=== PATIENT | male | born 1965 | race Two or more races ===

== ENCOUNTER 2024-11-06 11:36 | Inpatient (IN) | payer MEDICAID, SELFPAY ==
[2024-11-06 11:42] VITALS: BMI 25.0
--- NOTE | 2024-11-06 11:54 | EKG_ITS ---
[facility] Test Date: 2024-11-06 Pat Name: VALENTINO MIDDLETON Department: Room: 14A Gender: Male Termite Control Representative: ROMULO : 1965 Requested By: Jose Bhagat Order Number: [id number] Reading MD: Jose Bhagat Measurements Intervals [place] Rate: 80 P: 32 LA: 130 QRS: -12 QRSD: 98 T: 107 QT: 358 QTc: 415 Interpretive Statements SINUS RHYTHM INCOMPLETE RIGHT BUNDLE BRANCH BLOCK [90+ ms QRS DURATION, TERMINAL R IN V1/V2, 40+ ms S IN I/aVL/V4/V5/V6] ST DEVIATION AND MODERATE T-WAVE ABNORMALITY, CONSIDER ANTEROLATERAL ISCHEMIA [-0.1+ mV T WAVE IN V3-V6] No previous ECG available for comparison /store/S0/[id number]/ecg/[id number]
--- NOTE | 2024-11-06 11:54 | XR_ITS ---
Examination: AP chest single view Technique one AP portable upright chest single view Date and time: November 06, 2024 1316 hours INDICATIONS: Status post tracheostomy tube placement FINDINGS: Tracheostomy tube tip 7.6 cm from the johnny Mild prominence left ventricle No pneumonia or pulmonary edema Osseous structures intact IMPRESSION: Tracheostomy tube tip 7.6 cm from the johnny
[2024-11-06 12:00] VITALS: BP 107/68; RESP 74; TEMP 37.2
[2024-11-06 12:07] VITALS: PULSE 77; RESP 19; O2SAT 97
[2024-11-06 13:29] LABS: Basophils % (Auto) 0 % (0-2.5); Eosinophils # (Auto) 0.1 Thou/mm3 (0.0-0.5); Eosinophils % (Auto) 1 % (0-10); Hematocrit 41.6 % (41.0-53.0); Hemoglobin 14.2 g/dL (13.5-16.0); Immature Granulocytes % (Auto) 6 % (0-0); Immature Granulocytes Auto 0.62 Thou/mm3 (0.00-0.00); Lymphocytes # (Auto) 2.1 Thou/mm3 (1.0-4.8); Lymphocytes % (Auto) 18 % (10-50); Mean Corpuscular HGB Conc 34.1 g/dl (31.0-37.0); Mean Corpuscular Hemoglobin 29.6 pg (25.0-35.0); Mean Corpuscular Volume 87 fL (80-100); Monocytes # (Auto) 0.5 Thou/mm3 (0.0-0.8); Monocytes % (Auto) 4 % (0-12); Neutrophils % (Auto) 71 % (37-80); Nucleated Red Blood Cell % 0 /100 WBC (0); Platelet Count 165 Thou/mm3 (140-440); RDW Standard Deviation 48.4 fL (35.1-43.9); Red Blood Count 4.79 Miln/mm3 (4.50-5.90); White Blood Count 11.2 Thou/mm3 (3.8-10.6)
[2024-11-06 14:00] LABS: Base Excess 3 (-3-3); HCO3 27 mEq/L (20-26); Inspired Oxygen, FIO2 28 %; O2 Saturation 98 % (91-98); PCO2 38 mmHg (32.0-48.0); PO2 87 mmHg (83-108); pH, Arterial 7.46 (7.35-7.45)
[2024-11-06 14:02] LABS: Allen Test Performed/OK; Puncture Site Site Not Noted
--- NOTE | 2024-11-06 14:14 | PC.SS ---
Resident admitted to subacute care on blow by with trach in place and GT for medication and nutrition. Resident is FULL CODE with full treatment. Resident decision maker is his daughter and .
--- NOTE | 2024-11-06 16:42 | PC.NURSE ---
Resident admitted from [facility], accompanied by AMT, resident was stable V/S 107/68 BP, 74 P, 98.9 temp., 20 respiration, saturation rate 97% on blow by 6L 28%, resident has a diagnosis of Glioblastoma, hypertension,Brain mass and hypertension, resident remain to be fullMD lacie. made aware and reviewed medication, make order and carried out, meet the family and answered all there concerns.
[2024-11-06 17:20] VITALS: BP 110/71; RESP 72; TEMP 36.6; O2SAT 97
[2024-11-06 19:03] VITALS: PULSE 72; RESP 18; O2SAT 98
--- NOTE | 2024-11-06 20:25 | ESHP_ITS ---
Physical exam Physical Exam Vital signs: Temp Pulse Resp BP Pulse Ox O2 Flow Rate FiO2 97.5 F 84 18 115/76 98 6 28 11/07/24 05:58 11/07/24 05:58 11/07/24 05:58 11/07/24 05:58 11/07/24 05:58 11/07/24 04:21 11/07/24 04:21 Narrative: Non-responsive to verbal commands, VSS Constitutional Constitutional: no acute distress HEENT Exam Comments: NAD Neck Exam Comments: supple, no JVD Chest/Breast/Axilla Exam Comments: NAD Respiratory Exam Respiratory: Present chest non-tender and lungs clear Cardiovascular Exam Cardiovascular: Present RRR, S1 and S2 Abdominal Exam Abdominal: Present soft and normoactive bowel sounds Rectal Exam Comments: deferred Exam Comments: NAD Extremities Exam Comments: spastic, no edema, no spontaneous movement seen Back/Spine/Pelvis Exam Comments: NAD Neurological Exam Comments: PVS, no response to any stimuli, no cognitive function. Incontinence of bladder & bowel Rehabilitation potential Diagnosis (1) Glioblastoma multiforme of central nervous system: Status: Chronic (2) Persistent vegetative state: Status: Chronic (3) Chronic respiratory failure: Status: Chronic (4) Essential hypertension: Status: Chronic (5) G tube feedings: Status: Chronic (6) Tracheostomy in place: Status: Chronic (7) Pontine hemorrhage: Status: Chronic Assessment & Plan Assessment: Pt admitted for comfort care for a terminal non treatable brain tumor Glioblastoma with complications of Pontine hemorrhage and respiratory failur as well as a PVS with resp compromise needing supplemental O2 and a feeding G tube. Achievable objective is comfort which is being ensured Plan: Comfort measures along with all treatment reviewed and continued . Pt had refused aggressive treatment for his brain tumor as per the family members since the prognosis was very limited for longevity of life Prognosis Prognosis: v. poor HPI History of Present Illness HPI: Pt is a 59 yrs of age male being admitted to DPS at [facility] for terminal clerk care. Pt is in a terminal state with diagnosis of Brain tumor namely GLIOBLASTOMA OF THE BRAIN not amenable to treatment other than for comfort. Pt remains in a comatosed state/Encephalopathic. Associated comorbidities include Pontine hemorrhage; HTN; Ch. respiratory failure with a Trach and a feeding G tube in place
[2024-11-06] MEDS: CHLORHEXIDINE MOUTHWASH 0.12% UDC 15 ML PO (20:39)
[2024-11-07] VITALS (8 sets, daily range): BP systolic 107–115; BP diastolic 68–77; PULSE 76–91; RESP 18–21; TEMP 36.1–39.8; O2SAT 96–99
[2024-11-07] MEDS: ENOXAPARIN SODIUM 40 MG/0.4 ML SYRINGE SC (09:16)
[2024-11-07] MEDS: CHLORHEXIDINE MOUTHWASH 0.12% UDC 15 ML PO ×2 (09:16→21:47)
[2024-11-07] MEDS: PANTOPRAZOLE 40 MG GRANPKT.DR GT (09:17)
[2024-11-07] MEDS: SULFAMETHOXAZOLE/TRIMETHOPRIM 1 EACH TABLET GT (09:28)
[2024-11-07] MEDS: ACETAMINOPHEN 325 MG TABLET GT (12:30)
[2024-11-07 21:09] LABS: Collection Type, Urine Catheter; Squamous Epithelial Cell,Urine 0 /hpf (0-5)
[2024-11-07 21:26] LABS: Basophils # (Auto) 0.1 Thou/mm3 (0.0-0.2); Basophils % (Auto) 0 % (0-2.5); Eosinophils # (Auto) 0.1 Thou/mm3 (0.0-0.5); Eosinophils % (Auto) 1 % (0-10); Hematocrit 40.4 % (41.0-53.0); Hemoglobin 13.7 g/dL (13.5-16.0); Immature Granulocytes % (Auto) 4 % (0-0); Immature Granulocytes Auto 0.65 Thou/mm3 (0.00-0.00); Lymphocytes # (Auto) 2.2 Thou/mm3 (1.0-4.8); Lymphocytes % (Auto) 12 % (10-50); Mean Corpuscular HGB Conc 33.9 g/dl (31.0-37.0); Mean Corpuscular Hemoglobin 29.8 pg (25.0-35.0); Mean Corpuscular Volume 88 fL (80-100); Monocytes # (Auto) 0.8 Thou/mm3 (0.0-0.8); Monocytes % (Auto) 4 % (0-12); Neutrophils # (Auto) 14.4 Thou/mm3 (1.8-7.7); Neutrophils % (Auto) 79 % (37-80); Nucleated Red Blood Cell % 0 /100 WBC (0); Platelet Count 145 Thou/mm3 (140-440); RDW Standard Deviation 48.8 fL (35.1-43.9); White Blood Count 18.1 Thou/mm3 (3.8-10.6)
[2024-11-07 21:39] LABS: COVID-19 Antigen (In-House) Negative (Negative)
[2024-11-07 21:41] LABS: Bacteria,Urine 4+; Bilirubin,Urine Negative (Negative); Blood,Urine Negative (Negative); Clarity,Urine Turbid (Clear/Hazy); Color,Urine Yellow (Lt Yel-Yel); Glucose, Urine Negative (Negative); Ketones,Urine Negative (Negative); Leukocyte Esterase,Urine Positive (Negative); Nitrite,Urine Positive (Negative); PH,Urine 6.5 (5.0-7.0); Protein,Urine Trace (Neg - Trace); RBC,Urine 5 /hpf (0-3); Specific Gravity,Urine 1.029 (1.001-1.035); WBC,Urine 216 /hpf (0-5)
[2024-11-07 21:43] LABS: Procalcitonin 0.17 ng/ml (0.0-0.49)
[2024-11-07] MEDS: MAGNESIUM HYDROXIDE 30 ML ORAL SUSP ML GT (21:47)
[2024-11-07 21:53] LABS: Influenza A Ag Negative; Influenza B Ag Negative
--- NOTE | 2024-11-07 22:27 | PC.NURSE ---
Per day shift charge nurse, resident had a fever of 103.6F, tyl. administered and temp. came down to 100.3, rectal temp. was re-check at 2024 and noted to be 100.4F, made aware and fever protocol initiated. 2219-lab results are in, made aware of result, new order for Levaquin 500mg daily via Gtube x 7 days, re-eval. pending cultures, this nurse left a voicemail to resident to call back facility for update, resident in room resting, call light within reach, no s/s of distress noted, HOB elevated.
[2024-11-07] MEDS: levoFLOXacin 500 MG TABLET GT (23:19)
[2024-11-08] VITALS (9 sets, daily range): BP systolic 115–122; BP diastolic 68–81; PULSE 78–86; RESP 18–20; TEMP 36.8–38.9; O2SAT 97–100
[2024-11-08] MEDS: ACETAMINOPHEN 325 MG TABLET 650 MG GT ×2 (03:21→16:30)
[2024-11-08] MEDS: IBUPROFEN 100 MG/5 ML ORAL.SUSP 600 MG GT (06:20)
[2024-11-08] MEDS: ENOXAPARIN SODIUM 40 MG/0.4 ML SYRINGE SC (08:23)
[2024-11-08] MEDS: PANTOPRAZOLE 40 MG GRANPKT.DR GT (08:23)
[2024-11-08] MEDS: SULFAMETHOXAZOLE/TRIMETHOPRIM 1 EACH TABLET GT (08:23)
[2024-11-08] MEDS: CHLORHEXIDINE MOUTHWASH 0.12% UDC 15 ML PO ×2 (09:00→20:30)
--- NOTE | 2024-11-08 16:07 | PC.IP ---
Addendum entered by Marcia Ontiveros LVN 11/15/24 15:01: Resident had episodes of desaturation and RUE flaccid; to ED for further evaluation on 11/14/24. Bibasilar pneumonia with the Bactrim DS; received IV antibiotic administration while in ED. Original Note: Offered Pneumococcal 20 vaccine with RP positive response. Resident has had some episodes of fever and on Bactrim DS. Will speak with MD on Saturday 11/11 regarding moving forward after antibiotics dose complete. MD will wait at least one week after dose complete of any antibiotic administration for any resident.
--- NOTE | 2024-11-08 16:42 | PC.DIETICIAN ---
Dietitian note: requesting to add a water bag to hang for hydration. Discussed with Fina WOO 1.Will add auto water flush of 25ml/hr x 22hrs 2. Decrease manual water flush from 400ml/shift -->200ml/ shift Total fluids: TF 1509ml+ AF 550ml+ manual flush 200ml/shift min (400ml)=2459ml or 35ml/kg using 70kg Thank you
[2024-11-08] MEDS: levoFLOXacin 500 MG TABLET GT (20:30)
[2024-11-09] VITALS (7 sets, daily range): BP systolic 102–111; BP diastolic 71–79; PULSE 77–82; RESP 17–18; TEMP 36.4–38.4; O2SAT 97–99
[2024-11-09] MEDS: CHLORHEXIDINE MOUTHWASH 0.12% UDC 15 ML PO ×2 (08:15→21:30)
[2024-11-09] MEDS: PANTOPRAZOLE 40 MG GRANPKT.DR GT (08:16)
[2024-11-09] MEDS: SULFAMETHOXAZOLE/TRIMETHOPRIM 1 EACH TABLET GT (08:17)
[2024-11-09] MEDS: ENOXAPARIN SODIUM 40 MG/0.4 ML SYRINGE SC (09:15)
[2024-11-09] MEDS: guaiFENesin Liq 100 MG/5 ML LIQUID GT (14:50)
[2024-11-09] MEDS: ACETAMINOPHEN 325 MG TABLET 650 MG GT (20:38)
[2024-11-09] MEDS: levoFLOXacin 500 MG TABLET GT (21:30)
[2024-11-10] VITALS (7 sets, daily range): BP systolic 113–134; BP diastolic 66–86; PULSE 74–90; RESP 17–22; TEMP 36.3–36.9; O2SAT 99–100
--- NOTE | 2024-11-10 06:08 | PC.NURSE ---
approximately 0230 DATACAP DEVELOPER found resident's trach was out. notified RN line department supervisor and trach re-inserted.
--- NOTE | 2024-11-10 07:40 | PD.SAPROG ---
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 SUBJECTIVE Fever:: none Shortness of Breath:: none Pain:: none OBJECTIVE Most recent vital signs: Last Vital Signs Temp 97.4 F 11/10/24 06:30 Pulse 79 11/10/24 06:30 Resp 20 11/10/24 06:30 BP 117/75 11/10/24 06:30 Pulse Ox 100 11/10/24 06:30 O2 Del Method Blow-by 11/10/24 06:30 O2 Flow Rate 6 11/10/24 02:00 FiO2 28 11/10/24 02:00 Neurological:: PVS (No cognitive response, no spontaneous/purposeful movement) Speech:: none Answers questions:: no Respiratory:: lungs clear Cardiovascular: RRR Abdomen: soft and nontender Extremities:: deformities (no edema) Tracheostomy:: to blow by Feeding per:: G tube ASSESSMENT & PLAN Assessment: Pt admitted for comfort care for a terminal non treatable brain tumor Glioblastoma with complications of Pontine hemorrhage and respiratory failur as well as a PVS with resp compromise needing supplemental O2 and a feeding G tube. Achievable objective is comfort which is being ensured Plan: Comfort measures along with all treatment reviewed and continued . Pt had refused aggressive treatment for his brain tumor as per the family members since the prognosis was very limited for longevity of life
[2024-11-10] MEDS: CHLORHEXIDINE MOUTHWASH 0.12% UDC 15 ML PO ×2 (09:16→21:22)
[2024-11-10] MEDS: ENOXAPARIN SODIUM 40 MG/0.4 ML SYRINGE SC (09:16)
[2024-11-10] MEDS: SULFAMETHOXAZOLE/TRIMETHOPRIM 1 EACH TABLET GT (09:18)
[2024-11-10] MEDS: PANTOPRAZOLE 40 MG GRANPKT.DR GT (09:18)
--- NOTE | 2024-11-10 11:19 | PC.NURSE ---
Received report from NOC RN Aurelia regarding resident's RT swollen testicle. Montessori Toddler Teacher assessed and noted same issue. Notified MD. Ordered US to be done KOLE. Notified Family. Also Notified resident's of the use of RT hand mitten aw per Doctor order due to resident pulling at life sustaining tubes. agreed to sign consent.
--- NOTE | 2024-11-10 13:28 | XR_ITS ---
Examination: Testicular sonography complete Technique: Grayscale sonographic images testes, assessment arterial inflow venous outflow Doppler spectral analysis carful analysis Date and time: November 10, 2024 1450 hrs. Indications: Testicular swelling noted beginning 2 days ago, patient is comatose Findings: Right testis 4.0 cm epididymis 2.7 cm Complex right epididymal cyst 17 x 14 x 15 mm Arterial flow testicle. No testicular mass Scrotal wall 12 mm Left testis 4.0 cm Epididymis 4.8 cm Arterial flow testicle. No testicular mass Mild hydrocele Impression: No testicular torsion or testicular mass Right epididymal cyst 17 x 14 x 15 mm Left epididymitis Moderate right hydrocele
[2024-11-10] MEDS: levoFLOXacin 500 MG TABLET GT (21:21)
[2024-11-10] MEDS: ACETAMINOPHEN 325 MG TABLET GT (21:22)
[2024-11-11] VITALS (7 sets, daily range): BP systolic 107–122; BP diastolic 64–82; PULSE 75–88; RESP 17–21; TEMP 36.6–37; O2SAT 96–100
[2024-11-11] MEDS: ENOXAPARIN SODIUM 40 MG/0.4 ML SYRINGE SC (09:04)
[2024-11-11] MEDS: CHLORHEXIDINE MOUTHWASH 0.12% UDC 15 ML PO ×2 (09:06→21:43)
[2024-11-11] MEDS: SULFAMETHOXAZOLE/TRIMETHOPRIM 1 EACH TABLET GT (09:08)
[2024-11-11 12:48] LABS: Collection Type, Urine Catheter
[2024-11-11 14:09] LABS: Bilirubin,Urine Negative (Negative); Blood,Urine Negative (Negative); Clarity,Urine Clear (Clear/Hazy); Color,Urine Yellow (Lt Yel-Yel); Culture Indicated,Urine Not Indicated; Glucose, Urine Negative (Negative); Ketones,Urine Negative (Negative); Leukocyte Esterase,Urine Positive (Negative); Nitrite,Urine Negative (Negative); PH,Urine 7.5 (5.0-7.0); Protein,Urine Negative (Neg - Trace); RBC,Urine 7 /hpf (0-3); Specific Gravity,Urine 1.016 (1.001-1.035); Squamous Epithelial Cell,Urine < 1 /hpf (0-5); WBC,Urine 10 /hpf (0-5)
--- NOTE | 2024-11-11 16:03 | PC.SS ---
RP informed of advanced directive offered in house, resident is unable to participate due to cognitive impairment and absence of speech. Family made aware of conservatorship options through court system. Family does not feel this to be necessary for now.
[2024-11-11] MEDS: levoFLOXacin 500 MG TABLET GT (21:43)
[2024-11-12] VITALS (8 sets, daily range): BP systolic 110–119; BP diastolic 67–75; PULSE 77–97; RESP 18–20; TEMP 36–38.8; O2SAT 96–99
[2024-11-12] MEDS: CHLORHEXIDINE MOUTHWASH 0.12% UDC 15 ML PO ×2 (09:07→20:26)
[2024-11-12] MEDS: PANTOPRAZOLE 40 MG GRANPKT.DR GT (09:08)
[2024-11-12] MEDS: ENOXAPARIN SODIUM 40 MG/0.4 ML SYRINGE SC (09:08)
[2024-11-12] MEDS: SULFAMETHOXAZOLE/TRIMETHOPRIM 1 EACH TABLET GT (09:09)
--- NOTE | 2024-11-12 10:44 | PC.SS ---
Resident comes in to see resident daily, she is nervous and seems very suspicious of staff and care. She has asked for resident to be dressed daily, she is nervous about leaving clothing in facility, this SSD assured her all clothing will be labeled and added to inventory sheet. Family will do laundry.
[2024-11-12] MEDS: levoFLOXacin 500 MG TABLET GT (21:26)
[2024-11-12] MEDS: ACETAMINOPHEN 325 MG TABLET 650 MG GT (21:27)
[2024-11-13] VITALS: BP 101/70; PULSE 71; RESP 20; TEMP 38.8
[2024-11-13 06:00] VITALS: BP 131/85; PULSE 83; RESP 18; TEMP 36.8; O2SAT 99
[2024-11-13 06:58] VITALS: PULSE 84; RESP 18; O2SAT 98
[2024-11-13] MEDS: ENOXAPARIN SODIUM 40 MG/0.4 ML SYRINGE SC (08:11)
[2024-11-13] MEDS: CHLORHEXIDINE MOUTHWASH 0.12% UDC 15 ML PO ×2 (08:11→20:00)
[2024-11-13] MEDS: SULFAMETHOXAZOLE/TRIMETHOPRIM 1 EACH TABLET GT (08:12)
[2024-11-13] MEDS: PANTOPRAZOLE 40 MG GRANPKT.DR GT (08:12)
[2024-11-13 11:18] VITALS: BP 107/64; PULSE 89; TEMP 36.7
[2024-11-13 16:52] VITALS: TEMP 38.1
[2024-11-13] MEDS: ACETAMINOPHEN 325 MG TABLET 650 MG GT (16:52)
[2024-11-13 17:29] VITALS: BP 151/87; PULSE 79; RESP 19; TEMP 36.9; O2SAT 98
[2024-11-13] MEDS: levoFLOXacin 500 MG TABLET GT (20:00)
[2024-11-14] VITALS: BP 155/82; PULSE 90; RESP 20; TEMP 36.9
[2024-11-14 01:45] VITALS: PULSE 84; RESP 18; O2SAT 89
[2024-11-14 06:00] VITALS: BP 147/80; PULSE 72; RESP 20; TEMP 36.9; O2SAT 100
[2024-11-14 06:58] VITALS: PULSE 81; RESP 18; O2SAT 98
[2024-11-14] MEDS: CHLORHEXIDINE MOUTHWASH 0.12% UDC 15 ML PO ×2 (08:35→22:50)
[2024-11-14] MEDS: PANTOPRAZOLE 40 MG GRANPKT.DR GT (08:36)
[2024-11-14] MEDS: SULFAMETHOXAZOLE/TRIMETHOPRIM 1 EACH TABLET GT (08:38)
[2024-11-14] MEDS: guaiFENesin Liq 100 MG/5 ML LIQUID GT (08:45)
[2024-11-14 11:55] VITALS: BP 137/79; PULSE 69; RESP 20; TEMP 36.3
--- NOTE | 2024-11-14 12:51 | PC.NURSE ---
Resident's non-responsive and right hand noted to be flaccid. Noted with high residuals . O2 saturation dropped to 87%- 89% on FIO2 at 40%. No s/s of respiratory distress. Suctioned as needed. HOB elevated . Slowly increased FIO2 but can't maintain O2 saturation of >90%. On FIO2 at 100% with O2 saturation of 95% -96%. V/S as follows: 137/79, 69, 20, 99.4 rectally. Order received to transfer resident to ER for further evaluation. Called ER and gave report. Resident's was notified at 12:28. Resident was sent out to ER at 12:46 via [facility].
[2024-11-14] MEDS: ENOXAPARIN SODIUM 40 MG/0.4 ML SYRINGE SC (14:36)
--- NOTE | 2024-11-14 16:15 | PC.NURSE ---
Patient was seen having low oxygen saturation ranging from low 90s with fatigue. Patient had gastric residuals of >200mls. RN on duty is made aware and MD aware. At 1235, Patient was sent out to ER due to change of LOC.
--- NOTE | 2024-11-14 16:21 | PD.SAPROG ---
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 SUBJECTIVE Fever:: none Shortness of Breath:: none Pain:: none OBJECTIVE Most recent vital signs: Last Vital Signs Temp 97.4 F 11/14/24 11:55 Pulse 69 11/14/24 11:55 Resp 20 11/14/24 11:55 BP 137/79 H 11/14/24 11:55 Pulse Ox 98 11/14/24 06:58 O2 Del Method Mechanical Ventilation 11/14/24 06:00 O2 Flow Rate 8 11/14/24 06:58 FiO2 30 11/14/24 06:58 Neurological:: PVS (No cognitive response, no spontaneous/purposeful movement) Speech:: none Answers questions:: no Respiratory:: lungs clear Cardiovascular: RRR Abdomen: soft and nontender Extremities:: deformities (no edema) Tracheostomy:: to blow by Feeding per:: G tube ASSESSMENT & PLAN Assessment: Pt admitted for comfort care for a terminal non treatable brain tumor Glioblastoma with complications of Pontine hemorrhage and respiratory failur as well as a PVS with resp compromise needing supplemental O2 and a feeding G tube. Achievable objective is comfort which is being ensured Plan: Comfort measures along with all treatment reviewed and continued . Pt had refused aggressive treatment for his brain tumor as per the family members since the prognosis was very limited for longevity of life. Noted to have further neurological worsening in not being able to move tne leg at all which worsening though expected in progressive brain tumor, but since pt is still a full code as per family , he was transferred to ER.
--- NOTE | 2024-11-14 23:00 | PC.NURSE ---
[facility] by AMNA Sylvester and RT Vishal. Resident unresponsive, flaccid, no distress noted. No response to verbal or touch. RT placed resident on 50% FIo2 Blow by, maintained saturation at 93% at this time. Resident situated, made comfortable. BP 96/58, HR 81, RR 19, Temp 97.5 Resume care.
--- NOTE | 2024-11-14 23:06 | PC.NURSE ---
Daughter of resident had called [phone], stating of [facility]. Waiting for arrival of resident's . Son is at bedside at this time.
[2024-11-15] VITALS (10 sets, daily range): BP systolic 95–136; BP diastolic 63–80; PULSE 68–85; RESP 7–20; TEMP 36.1–38.6; O2SAT 94–99
--- NOTE | 2024-11-15 01:36 | PC.RT ---
pt was transfered to [facility] without complications at 21:25 fio2 100% flow 9, once at bedside fio2 titrated to 50% sats maintaining 92-94% no distress noted nurse morgan was made aware.
--- NOTE | 2024-11-15 04:46 | PC.NURSE ---
Late Entry. Spoke with Dr. Bhagat @ 2390 regarding feeding due to high residual when sent to ER. Ordered to start Jevity 1.2 @ 10ml/hr increase by 10ml/hr every 8 hours to reach goal rate of 85ml/hr.
[2024-11-15] MEDS: CHLORHEXIDINE MOUTHWASH 0.12% UDC 15 ML PO ×2 (08:43→20:45)
[2024-11-15] MEDS: ENOXAPARIN SODIUM 40 MG/0.4 ML SYRINGE SC (08:43)
[2024-11-15] MEDS: PANTOPRAZOLE 40 MG GRANPKT.DR GT (08:43)
[2024-11-15] MEDS: SULFAMETHOXAZOLE/TRIMETHOPRIM 1 EACH TABLET GT (08:43)
[2024-11-15] MEDS: ACETAMINOPHEN 325 MG TABLET GT (08:54)
--- NOTE | 2024-11-15 12:08 | PC.NURSE ---
KATELYNN Bravo reported Resident latest vital signs at 1130 as follow 97.4, HR 71, B/P 130/74, RR 8 BPM. Assessed resident his O2 saturations at 93% . RT also assessed resident. No discomfort noted, appears comfortable, without any distress. Notified MD regarding Respiratory rate. order to continue to monitor. Noted high residual this am held Tube feeding x2 hours rechecked again residuals 150cc . Re-start tube feeding at 20cc/hr. Will continue to monitor.
--- NOTE | 2024-11-15 12:47 | PC.NURSE ---
Respiratory rate increased to 24 BPM after suctioning. resident responsive to feet rubbing.all other VS WNL.
--- NOTE | 2024-11-15 14:05 | PC.NURSE ---
At 1340 entered resident room and introduced myself to 3 family members at bedside; four adults in room in total. Son queried, How do you see my father? I explained that I would not present any information that a physician would be able to inform them of and I spoke of the resident's history in the acute care hospitals and his treatment at those hospitals, before his arrival here. I explained that I knew it was a difficult situation for them and that they should meet with Dr. Bhagat as soon as it can be arranged to further discuss prognostic outlook and possible code status. Per the ER MD notes, family was informed of the serious nature of the resident's illness. We spoke of his days when he was an active adult and working and he didn't ever go to the doctor, but started having bad headaches about 15 years ago. They just gave him really strong pills and didn't do anything else. This per the son. I emphasized the importance of speaking with Dr. Bhagat and letting him also explain the resident's current condition. The family is asking for scan results, because he was supposed to have another. I did check the RAD results and consider brain MRI MRA follow-up pre and post contrast. MD may be discussing during rounds for this resident. I will inform digging machine operator of my conversation.
--- NOTE | 2024-11-15 14:22 | PC.IP ---
Addendum entered by Marcia Ontiveros LVN 11/15/24 14:58: Note that sputum culture results of 11/10/24, Klebsiella pneumoniae 4+; confirmed sensitivity to Trimethoprim/Sulfamethoxazole as prescribed at this time for bibasilar pneumonia. Last documented temperature 99.5. Family visiting at bedside. Original Note: Resident is prescribed Bactrim DS pgt twice daily for positive bibasilar PNA, significant left base per CXR on 11/14/24 during ED visit. Continues on blow-by after visit to ED.
--- NOTE | 2024-11-15 15:10 | PC.SS ---
Resident remains on blow by with trach in place and GT for medication and nutrition. Resident is unable to make needs known, his Teresa is his decision maker and his son is next of kin Adam per RP. Family is at bedside daily. resident will remain in current care as he has no changes in care or condition, he will continue to have all subacute care needs met by staff. This SSD will continue to make contact with resident and will monitor for changes.
--- NOTE | 2024-11-15 19:19 | PC.OT ---
Late entry for events of this day shift. Resident had been monitored for high residuals greater than 250. Held TF x2 hours this am rechecked residuals at 11 and re-started TF at a rate of 20ml. 1130 MINERAL ENGINEER reported decreased RR to 7-8. notified MD no further orders given only to monitor closely as it was noted before all other vital signs remained stable. Resident resident continue with low RR . non responsive to verbal stimuli. At 1800 residual were checked 335ml noted. Call MD one more time. MD arrived to unit to evaluate resident. NO further order to transfer resident were given. MD spoke with resident's family (, son, and resident's sister) MD explained to family regarding poor prognosis for resident (Has Brain tumor) doctor suggested to made comfort measures only. at this time family will decide what comfort care they want other than keep him as full code. stated She wants for her to be comfortable without suffering. At this point pt remains Full code until further orders. Family verbalized understanding. Hand off report given to Isidra WOO night nurse.
--- NOTE | 2024-11-15 21:18 | PC.NURSE ---
Per day shift charge nurse, resident has been having low respiratory rate under 10 per minutes, per day shift charge nurse, came to see resident and explain to family and is current prognosis, at that time want resident to be a full code.
--- NOTE | 2024-11-15 22:02 | PC.NURSE ---
made aware of resident current vitals 161/84,90,5, 02sat 97%, this nurse called family to notify of decrease respirations, is undecisive to change code status but does not want him to be send out to ER, new order to place resident on vent, RT made aware, family made aware of resident placed on a vent, per family they will decide code status tomorrow and unable to decide tonight, this nurse informed him that he still continues to be a full code at this time.
[2024-11-16] VITALS (11 sets, daily range): BP systolic 135–163; BP diastolic 75–91; PULSE 70–138; RESP 14–21; TEMP 36.7–40; O2SAT 96–99
[2024-11-16] MEDS: CHLORHEXIDINE MOUTHWASH 0.12% UDC 15 ML PO ×2 (09:16→20:15)
[2024-11-16] MEDS: PANTOPRAZOLE 40 MG GRANPKT.DR GT (09:17)
[2024-11-16] MEDS: ENOXAPARIN SODIUM 40 MG/0.4 ML SYRINGE SC (09:17)
[2024-11-16] MEDS: SULFAMETHOXAZOLE/TRIMETHOPRIM 1 EACH TABLET GT (09:17)
[2024-11-16] MEDS: ACETAMINOPHEN 325 MG TABLET GT (12:15)
[2024-11-16] MEDS: ACETAMINOPHEN 325 MG TABLET 650 MG GT (17:10)
--- NOTE | 2024-11-16 19:45 | PC.NURSE ---
made aware of resident current condition, resident has a fever of 104.0F rectally, new order for IBU 400mg [id number] prn given, RP made aware.
[2024-11-16] MEDS: IBUPROFEN 100 MG/5 ML ORAL.SUSP 400 MG GT (20:10)
[2024-11-17] VITALS (16 sets, daily range): BP systolic 107–169; BP diastolic 72–125; PULSE 108–137; RESP 14–21; TEMP 36.3–39.4; O2SAT 95–98
[2024-11-17] MEDS: ENOXAPARIN SODIUM 40 MG/0.4 ML SYRINGE SC (08:27)
[2024-11-17] MEDS: CHLORHEXIDINE MOUTHWASH 0.12% UDC 15 ML PO ×2 (08:27→20:31)
[2024-11-17] MEDS: PANTOPRAZOLE 40 MG GRANPKT.DR GT (08:28)
[2024-11-17] MEDS: ACETAMINOPHEN 325 MG TABLET 650 MG GT ×2 (08:28→14:18)
[2024-11-17] MEDS: SULFAMETHOXAZOLE/TRIMETHOPRIM 1 EACH TABLET GT (08:28)
[2024-11-17] MEDS: IBUPROFEN 100 MG/5 ML ORAL.SUSP 400 MG GT ×2 (09:33→17:41)
--- NOTE | 2024-11-17 15:18 | PC.NURSE ---
On 11/16/2024 about 1600 Mr. Trent's Teresa Adkins signed a POLST with DNR and to call family if health status changes.
--- NOTE | 2024-11-17 17:53 | PC.NURSE ---
0818-Rectal temp 102.4, Tylenol 650mg given via g-tube per order and cooling measures implemented. Rectal temp rechecked at 0930, 102.3. Ibuprofen given at 0933 per order and rechecked an hour later , 102.0. Cooling measures continued. Resident resting in bed with eyes closed, no s/s of distress or pain noted. RN notified.
--- NOTE | 2024-11-17 17:55 | PC.NURSE ---
1139- Rectal temp checked 101.7. Residuals checked and obtained 150ml. Tube feeding is currently at 50ml/hr and was not increased to 60ml/hr due to residuals. RN notified. Will continue with current plan of care.
--- NOTE | 2024-11-17 17:57 | PC.NURSE ---
1418- Rectal temperature 101.0. Tylenol given via g-tube per order.
[2024-11-17] MEDS: ACETAMINOPHEN 325 MG TABLET GT (20:33)
[2024-11-17] MEDS: MAGNESIUM HYDROXIDE 30 ML ORAL SUSP ML GT (21:03)
--- NOTE | 2024-11-17 23:17 | PC.NURSE ---
11/17/24@23:10: Dr. Bhagat called after this scientific writer checked patients residuals. Residuals found to be over 375ml. Pt continues unresponsive, vitals: Temp per rectal 96.4, RR 14, HR 108 and bp 61/48. Pt is cool to touch but skin still appears normal in color for pt. Residuals has continued to be over 300 since start of pm shift. Per Dr. Bhagat, feeding is to be turned off for the remainder of the shift. Pt to be kept comfortable.
--- NOTE | 2024-11-17 23:26 | PC.NURSE ---
11/17/24@23:10: Dr. Bhagat called after this engineering technical writer checked patients residuals. Residuals found to be over 375ml. Pt continues unresponsive, vitals: Temp per rectal 96.4, RR 14, HR 108 and bp 61/48. Pt is cool to touch but skin still appears normal in color for pt. Residuals has continued to be over 300 since start of pm shift. Per Dr. Bhagat, feeding is to be turned off for the remainder of the shift. Pt to be kept comfortable.
[2024-11-18] VITALS (9 sets, daily range): BP systolic 42–61; BP diastolic 30–48; PULSE 55–95; RESP 14–15; TEMP 35.5–36.1; O2SAT 64–97
[2024-11-18] MEDS: CHLORHEXIDINE MOUTHWASH 0.12% UDC 15 ML PO (08:34)
[2024-11-18] MEDS: SULFAMETHOXAZOLE/TRIMETHOPRIM 1 EACH TABLET GT (08:34)
[2024-11-18] MEDS: ENOXAPARIN SODIUM 40 MG/0.4 ML SYRINGE SC (08:34)
[2024-11-18] MEDS: PANTOPRAZOLE 40 MG GRANPKT.DR GT (08:34)
--- NOTE | 2024-11-18 10:55 | PC.SS ---
Resident seen by salesperson used cars for routine podiatry care. Resident tolerated treatment well with no new orders or recommendations, Resident will continue current care.
--- NOTE | 2024-11-18 12:03 | PC.NURSE ---
nurse after school program assistant Noelle reporting resident's blood pressure decreased to 43/ 33 with mechanical B/P machine, HR 85, RR 14 with mechanical ventilator. Manual b/p done manually by Heavenly WOO noted 60/30. HR 61. Notified MD stat and family. Called Teresa resident's and informed of resident's change in condition. So far resident remains on comfort measures. Does not appear in distress. Will continue to monitor.
--- NOTE | 2024-11-18 14:06 | PC.NURSE ---
Late entry for 1306. Dr. Bhagat arrived to unit to check on resident. MD assessed for vital signs unable to get vital signs, and or heart rate able to palpated HR beat 1 every 10 seconds. Mechanical ventilator still assisting his respirations. ordered changes on vent setting and let resident take spontaneous breaths. Resident noted with agonal breathing. Doctor spoke to multiple family members of possible outcome ( resident will soon may pass away. Family verbalized understanding. at 1405 resident HR was checked via doppler and fainted HR was still noted. Family remained at bed side. resident appears comfortable without visible distress. Will continue to monitor closely, resident remains trach to mechanical ventilator on spontaneous breathing.
--- NOTE | 2024-11-18 15:22 | PC.NURSE ---
RE-assessed pulse via Doppler, HR beat still sensed. trach to mechanical ventilator assisting respiratory rate. Resident's remains at bedside. Will rechecked resident again in 1 hour.
--- NOTE | 2024-11-18 18:09 | PC.NURSE ---
Assessed resident at this time. vital signs continue to declining MD notified. Family remains at pt's bedside. Will give hand off report to NOC nurse.
--- NOTE | 2024-11-18 19:16 | PC.NURSE ---
Held tube feeding At 1500 due to high residuals >200 as per MD order.
--- NOTE | 2024-11-18 21:10 | PC.NURSE ---
Doppler used to assess femoral pulse, reading at 84/min. and son Adam at bedside. RT Trung also present at bedside.
[2024-11-19] VITALS (8 sets, daily range): BP systolic 53–102; BP diastolic 41–70; PULSE 87–97; RESP 15; TEMP 35.6–36.1; O2SAT 88–93
--- NOTE | 2024-11-19 01:30 | PC.NURSE ---
DIFFICULT TO AUSCULTATE HEART BEAT WITH STETHOSCOPE, WEAK PULSE TO RIGHT RADIAL. HOUSE SUP PROVIDED TELEPHONE INTERVIEWER TO SPOT CHECK. MONITOR READ 86 HR. SON LYNNE AT BEDSIDE. RESIDE UNRESPONSIVE, FLACCID.
--- NOTE | 2024-11-19 06:51 | PC.NURSE ---
reported by BUCKLE GLUER resident didn't have an output at this time. bladder scan initiated found 418 ml. asked permission from Son who's at the bedside at this time to perform in and out cath which son agreed. 275 ml or Urine collected from in and out cath.
[2024-11-19] MEDS: CHLORHEXIDINE MOUTHWASH 0.12% UDC 15 ML PO (09:24)
[2024-11-19] MEDS: ENOXAPARIN SODIUM 40 MG/0.4 ML SYRINGE SC (09:24)
[2024-11-19] MEDS: SULFAMETHOXAZOLE/TRIMETHOPRIM 1 EACH TABLET GT (09:26)
--- NOTE | 2024-11-19 16:21 | PC.NURSE ---
Resident doesnt void for 8hrs after in and out MD. [place] and order to put shaffer catheter for comfort, order noted and carried out.
--- NOTE | 2024-11-19 17:10 | PC.RT ---
Per Dr Bhagat keep patient on vent mode: spont PS until further notice.
--- NOTE | 2024-11-19 21:45 | PC.NURSE ---
feeding hold due to 360 ml of residual.
[2024-11-20] VITALS (9 sets, daily range): BP systolic 81–108; BP diastolic 54–75; PULSE 84–97; RESP 15–17; TEMP 35.7–36.8; O2SAT 88–96
[2024-11-20] MEDS: CHLORHEXIDINE MOUTHWASH 0.12% UDC 15 ML PO (09:29)
[2024-11-20] MEDS: SULFAMETHOXAZOLE/TRIMETHOPRIM 1 EACH TABLET GT (09:30)
[2024-11-20] MEDS: PANTOPRAZOLE 40 MG GRANPKT.DR GT (09:30)
[2024-11-20] MEDS: ENOXAPARIN SODIUM 40 MG/0.4 ML SYRINGE SC (09:30)
--- NOTE | 2024-11-20 18:17 | PC.NURSE ---
Family at bedside and decided to discontinue the ventilator and keep the resident on comfort measure, . made aware ordered per family request discontinue mechanical ventilator and keep patient on comfort measure, order noted and carried out, family made aware about the order and they will notify staff whenever they are ready.
--- NOTE | 2024-11-21 00:38 | PC.NURSE ---
Received in report that resident's family wanted resident to be taken off ventilator and trach removed (DNR-comfort measures only). At approximately 1900 resident's trach and ventilator removed by RT per family's request and doctor's order. Multiple family members in room, per director resident was moved to activities room for family to all be in the room. Before moving resident to activity room vitals were obtained BP: 143/86, HR 106, O2 sat: 36%. At approximately 1940 attempted to obtain O2 saturation and vitals signs, unable to obtain vitals at this time, no chest rising, unable to palpate pulse on multiple points and no apical pulse heard. Called [facility] Raciel Alaniz to pronounce, Laura Fitzpatrick RN from Med Surg here to pronounce resident at 2021. Notified Dr Bhagat, [facility] and Home: Peers Erik. Family was at bedside notified of Home estimated pickup at 2200. Home here at 2150 to pickup resident's remains, all belongings given to family, all questions answered.
--- NOTE | 2025-01-02 07:39 | ESDS_ITS ---
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 HOSPITAL COURSE AND RELEVANT DATA: The patient is a 59-year-old male with the above-stated terminal diagnosis of glioblastoma multiforme of the central nervous system with mass effect, end stage, admitted to the [facility] for comfort measures. The objective was achieved until on 11/20/2024. The patient deteriorating as expected progressively, but without any major discomfort, and was pronounced accordingly. The family was by the patient's bedside. DT: 18:48:04 TT: 19:34:00 Ref: [id number] - TID: [id number]
== END 2024-11-20 20:22 | disposition expired | DRG 41 ==
PROVIDERS: Admitting Provider Specialist; Visit Provider Specialist
DX: C71.9 Malignant neoplasm of brain, unspecified (principal); R40.3 Persistent vegetative state; J96.10 Chronic respiratory failure, unspecified whether with hypoxia or hypercapnia; I10 Essential (primary) hypertension; Z93.1 Gastrostomy status; Z93.0 Tracheostomy status; G93.40 Encephalopathy, unspecified; G93.5 Compression of brain; G93.6 Cerebral edema; I61.3 Nontraumatic intracerebral hemorrhage in brain stem; Z51.5 Encounter for palliative care; Z66 Do not resuscitate
CPT/HCPCS: 36415; 36600; 76870; 81001; 82803; 84145; 85025; 87040; 87077; 87086; 87186; 87205; 87502; 87811; 92523; 93005; 94002; 94004; 94762; A9270

== ENCOUNTER 2024-11-14 12:47 | Emergency (ER) | payer MEDICAID, SELFPAY ==
[2024-11-14] VITALS (8 sets, daily range): BP systolic 82–125; BP diastolic 54–75; PULSE 78–98; RESP 16–25; TEMP 36.7–37.1; O2SAT 90–94; BMI 24.9
--- NOTE | 2024-11-14 12:56 | XR_ITS ---
Examination: AP chest single view Technique one AP portable upright chest single view Date and time: November 14, 2024 1318 hours Comparison November 06, 2024 INDICATIONS: Hypoxia today. FINDINGS: Bibasilar pneumonia Normal heart size Reduced inspiratory effort IMPRESSION: Bibasilar pneumonia, significant left base
--- NOTE | 2024-11-14 12:56 | EKG_ITS ---
[facility] Test Date: 2024-11-14 Pat Name: VALENTINO MIDDLETON Department: Room: - Gender: Male Help Desk Administrator: : 1965 Requested By: Leonid Hernadez Order Number: [id number] Reading MD: Leonid Hernadez Measurements Intervals [place] Rate: 79 P: 121 AK: 151 QRS: 145 QRSD: 88 T: 127 QT: 374 QTc: 431 Interpretive Statements SINUS RHYTHM ARM LEADS REVERSED [INVERTED P AND QRS IN I] Compared to ECG 11/06/2024 16:38:11 Incomplete right bundle-branch block no longer present T-wave abnormality no longer present Possible ischemia no longer present /store/S0/[id number]/ecg/[id number]
--- NOTE | 2024-11-14 12:59 | EDNOTE_ITS ---
ED General RME/HPI General Chief complaint: Altered Mental Status Stated complaint: TRANSFER FROM SUBACUTE Time Seen by Provider: 11/14/24 12:55 Arrival date/time: 11/14/24 12:47 Limitations: altered mental status RME / HPI RME / HPI narrative: DR. HERNADEZ MAIN ED EVALUATION: 59 year old male with past medical history significant for brain tumor namely Glioblastoma of the brain not amenable to treatment other than for comfort. Patient presents to the Emergency Department from our subacute unit with complaint of altered mental status. Per subacute, patient's right arm was flaccid. Unknown baseline. Limited history at this time. Code Status: Full code, full treatment Related Data Home Medications ?Medication ?Instructions ?Recorded ?Confirmed acetaminophen 325 mg tablet 650 mg G-tube Q4HR PRN Fev er > 11/14/24 100.4 Previous Rx's ?Medication ?Instructions ?Recorded acetaminophen 325 mg tablet 325 mg G-tube Q6HR PRN for pain 30 11/06/24 days #30 tabs bisacodyl 10 mg rectal suppository 10 mg ND PRN PRN No BM Per Bowel 11/06/24 (Dulcolax (bisacodyl)) Management Protocol 366 days chlorhexidine gluconate 0.12 % 15 ml PO BID to preven redness and 11/06/24 mouthwash swelling #15 mL guaifenesin 100 mg/5 mL oral 100 mg (5 mL) G-tube Q6HR PRN 11/06/24 liquid (Angi-Tussin) Cough 30 days magnesium hydroxide 400 mg/5 mL 30 ml G-tube PRN PRN C onstipation 11/06/24 oral suspension (Milk of Magnesia) 366 days pantoprazole 40 mg granules 40 mg G-tube QDAY for GERD #1 ea 11/06/24 delayed-release for susp in packet polyethylene glycol 3350 17 gram 17 g G-tube PRN PRN N o BM Per 11/06/24 oral powder packet Bowel Management Protocol 36 6 days sodium phosphates 19 gram-7 133 ml ND PRN PRN No BM Pe r Bowel 11/06/24 gram/118 mL enema (Fleet Enema) Management Protocol 36 6 days sulfamethoxazole 800 1 ea G-tube DAILY for PJP mg-trimethoprim 160 mg tablet prophylaxis 30 days #30 tabs enoxaparin 40 mg/0.4 mL 40 mg (0.4 mL) SCi QDAY for 11/07/24 subcutaneous syringe prophylaxis 90 days #36 mL ibuprofen 100 mg/5 mL oral 600 mg (30 mL) G-tube Q6HR PRN 11/08/24 suspension Fever > 100.4 7 days Allergies Allergy/AdvReac Type Severity Reaction Status Date / Time No Known Allergies Allergy Verified 11/06/24 12:15 Review of Systems Review of Systems Systems Reviewed: All systems reviewed, normal except as documented Past Medical History Social History SMOKING STATUS: Unknown if ever smoked SECOND HAND EXPOSURE: No ED Exam General Limitations: Present altered mental status General appearance: Present other (abdominal breathing, nonresponsive) Head Head exam: Present atraumatic, normocephalic and normal inspection Eye Eye exam: Present EOMI and other (nonreactive pupils) ENT ENT exam: Present normal exam, normal oropharynx and mucous membranes moist Neck Neck exam: Present normal inspection and trachea midline Chest Chest inspection: Present normal inspection (no deformity) Respiratory Respiratory exam: Present normal lung sounds bilaterally Cardiovascular Cardiovascular exam: Present regular rate, normal rhythm and normal heart sounds Abdominal Exam Abdominal exam: Present soft and normal bowel sounds Extremities Exam Extremities exam: Present normal inspection Back Exam Back exam: Present normal inspection Neurological Exam Neurological exam: Present other (nonresponsive) Skin Skin exam: Present warm, dry, intact and normal color Other Other exam information: At 1426: Post exam, the Babinski reflex that was present on the right is now not present. Course Quality Measures none Orders Category Date Time Status CT Screening NOW Care 11/14/24 14:15 Completed Senior Economist STAT Care 11/14/24 12:56 Completed Continuous Pulse Oximetry ONCE Care 11/14/24 12:56 Completed EKG (ED ONLY) *Do not use* NOW Care 11/14/24 12:56 Completed EKG (ED ONLY) *Do not use* NOW Care 11/14/24 17:26 Completed Insert IV NOW Care 11/14/24 13:00 Completed Insert IV STAT Care 11/14/24 12:[address] angio carotid w head w Stat Exams 11/14/24 14:[address] head/brain wo con Stat Exams 11/14/24 12:59 Completed EKG (ED Only) Stat Exams 11/14/24 12:56 Draft EKG (ED Only) Stat Exams 11/14/24 17:26 Draft XR chest 1V portable Stat Exams 11/14/24 12:56 Completed ABG [Arterial Blood Gas] Stat Lab 11/14/24 13:12 Completed B-Type Natriuretic Peptide Stat Lab 11/14/24 13:11 Completed Blood Culture (Lab) Stat Lab 11/14/24 16:00 Received CBC Stat Lab 11/14/24 13:11 Completed Comprehensive Metabolic Panel Stat Lab 11/14/24 13:11 Completed Lipase Stat Lab 11/14/24 13:11 Completed Magnesium Stat Lab 11/14/24 13:11 Completed Prothrombin Time with INR Stat Lab 11/14/24 13:11 Completed Troponin I Stat Lab 11/14/24 13:11 Completed Dexamethasone Inj [Decadron Inj] Med 11/14/24 18:32 Discontinued 8 mg IVP X1 ONE MethylPREDNISolone.* [SoluMEDROL Inj] Med 11/14/24 14:16 Discontinued 125 mg IVP X1 ONE Piper/Tazo 3.375 gm Premix [Zosyn] Med 11/14/24 15:09 Discontinued 3.375 gm in 50 ml IV X1 Sodium Chloride 0.9% 1000 ml [Ns] 1,000 ml Med 11/14/24 16:26 Discontinued IV 999 mls/hr Sodium Chloride 0.9% 1000 ml [Ns] 1,000 ml Med 11/14/24 18:30 Discontinued IV 999 mls/hr Vancomycin/Ns 1 gm Ivpb 200 ml Med 11/14/24 15:15 Discontinued IV X1 Oxygen Delivery NOW RT 11/14/24 12:56 Completed Vital Signs Vital signs: Vital Signs Temperature 98.7 F 11/14/24 13:07 Pulse Rate 83 11/14/24 13:07 Respiratory Rate 20 11/14/24 13:07 Blood Pressure 125/75 11/14/24 13:07 Pulse Oximetry (%) 94 L 11/14/24 13:07 Oxygen Delivery Method Blow-by 11/14/24 13:07 Oxygen Flow Rate 10 11/14/24 13:07 Fraction of Inspired Oxygen 100 11/14/24 13:07 Discharge Plan Plan Patient Disposition: 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 Bhagat, Subacute Patient condition on transfer: Stable Prescriptions/Referrals Prescriptions/Med Rec: No Action bisacodyl [Dulcolax (bisacodyl)] 10 mg suppository 10 mg ND PRN PRN (Reason: No BM Per Bowel Management Protocol) 366 Days 0RF Rx Instructions: Administer as needed on 6th shift, if MOM ineffective. polyethylene glycol 3350 17 gram powder in packet 17 g G-tube PRN PRN (Reason: No BM Per Bowel Management Protocol) 366 Days 0RF Label Comments: Administer as needed if 2nd round bowel protocol ineffective. Rx Instructions: Mix with 4oz of water before giving. Hold tube feeding for 30 minutes after administration. Notify provider if no results from Miralax. magnesium hydroxide [Milk of Magnesia] 400 mg/5 mL suspension 30 ml G-tube PRN PRN (Reason: Constipation) 366 Days 0RF Rx Instructions: CONC: 400MG/5ML Fleet Enema 19-7 gram/118 mL enema 133 ml ND PRN PRN (Reason: No BM Per Bowel Management Protocol) 366 Days 0RF Label Comments: If Dulcolax is ineffective on 3rd day / 7th shift, give Fleets enema per Bowel Management Protocol. Notify MD if no results from Enema. enoxaparin 40 mg/0.4 mL syringe 40 mg SCi QDAY 90 Days Qty: 36 0RF pantoprazole [address] for susp in packet 40 mg G-tube QDAY Qty: 1 11RF chlorhexidine gluconate 0.12 % mouthwash 15 ml PO BID Qty: 15 11RF Label Comments: swab the gums and teeth to prevent swelling and redness of gums. guaifenesin [Angi-Tussin] 100 mg/5 mL liquid 100 mg G-tube Q6HR PRN (Reason: Cough) 30 Days 0RF Rx Instructions: Conc: 100MG/5ML acetaminophen 325 mg tablet 325 mg G-tube Q6HR PRN (Reason: for pain) Qty: 30 11RF sulfamethoxazole-trimethoprim 800-160 mg tablet 1 ea G-tube DAILY 30 Days Qty: 30 0RF ibuprofen 100 mg/5 mL suspension 600 mg G-tube Q6HR PRN (Reason: Fever > 100.4) 7 Days 0RF Rx Instructions: give 30mL to equal 600mg. Alternate with tylenol acetaminophen 325 mg Tablet 650 mg G-tube Q4HR PRN (Reason: Fever > 100.4) Patient Comments: Do not exceed more than 3G of acetaminophen from all sources in 24 hours. Referrals: No Primary/Family,Physician [Primary Care Provider] - In 1 week Problem List Clinical Impression: Terminal care, Glioblastoma multiforme Patient/Caregiver Discharge Instructions Print Language: Scottish Stand Alone Forms: Lupe Award Info., Patient Portal Info Letter MDM Narrative Sign out note: I had a very long conversation in different sessions with the family. The patient was transferred to this facility for long-term care from [facility]. It was determined to have a brain tumor on the right side, which is an operable, causing both mass effect with left-sided deficits, unresponsiveness and needing chronic respiratory support with tracheostomy, as well as feeding tube. Apparently, the patient was able to remove his right arm, however today the nursing staff noted that he is flaccid on the right, which is a new finding for him. It is not possible to determine a last seen normal to his condition. Upon arrival to this emergency department, patient Clinical Information Provided by other: subacute nurse [facility] Meds/Rx Considered, not Ordered None Labs/Rad/Tests considered, not Ordered None Chronic Illness/Social Conditions Add or document further as needed: Brain tumor namely Glioblastoma of the brain not amenable to treatment other than for comfort. Code Status: Full code, full treatment EKG EKG Interpretation narrative: My interpretation: EKG performed at 1749 hours, sinus rhythm, rate 81, no STEMI Imaging Radiology reports / interpretation(s): Procedure(s): XR chest 1V portable Accession Number(s): [id number] cc: Leonid Hernadez MD; Luis Templeton MD; NO PRIMARY/FAMILY,PHYSICIAN~ Examination: AP chest single view Technique one AP portable upright chest single view Date and time: November 14, 2024 1318 hours Comparison November 06, 2024 INDICATIONS: Hypoxia today. FINDINGS: Bibasilar pneumonia Normal heart size Reduced inspiratory effort IMPRESSION: Bibasilar pneumonia, significant left base Dictated By: Luis Templeton MD Procedure(s): CT head/brain wo con Accession Number(s): [id number] cc: Leonid Hernadez MD; Luis Templeton MD; NO PRIMARY/FAMILY,PHYSICIAN~ Examination: CT brain head without contrast. 2-D sagittal coronal reconstructions Date and time of exam:November 14, 2024 1333 hours INDICATIONS: Altered mental status today CTDI: vol (mGy):52.1 DLP: (mGycm):1097 Technique: Multiple CT axial sections of the brain have been obtained, 5 mm slice thickness. Contrast has not been administered. 2-D sagittal, coronal reconstructions have been obtained Low dose protocols were performed. One or more of the following dose reduction techniques were used; automated exposure control, adjustment of the mA and/or KV according to patient size, use of iterative reconstruction technique. Findings: Right frontotemporal mass 4 x 6.6 cm in dimension with massive surrounding edema Severe mass effect upon the ventricular system, obliteration of the right lateral ventricle and shift of the frontal horns to the left 15 mm Findings consistent with right upper lobe herniation Massive edema also in the right occipital lobe Right craniotomy defect IMPRESSION: Right frontotemporal brain neoplasm 4 x 6.6 cm with massive surrounding edema and severe mass effect as above Suspicious for additional acute infarct in the right occipital lobe Dictated By: Luis Templeton MD Procedure(s): CT angio carotid w head w Accession Number(s): [id number] cc: Leonid Hernadez MD; Luis Templeton MD; NO PRIMARY/FAMILY,PHYSICIAN~ Examination: CTA carotids with intravenous contrast CTA brain, head with intravenous contrast. 2-D sagittal, coronal reconstructions. 3-D reconstructions. Exam date and time: November 14, 2024 1549 hours INDICATIONS: Stroke alert, patient nonverbal change in mentation CTDI: vol (mGy) 11.4 DLP: (mGycm) 670 Technique: Multiple CTA axial brain, head carotid images post intravenous contrast injection 70 cc, Isovue-370. 2-D sagittal, coronal reconstructions. 3-D reconstructions, 3-D post processing including vascular maximum intensity projection images. Low dose protocols were performed. One or more of the following dose reduction techniques were used; automated exposure control, adjustment of the mA and/or KV according to patient size, use of iterative reconstruction technique. Findings: No significant common carotid carotid bifurcation or internal carotid artery stenoses Mildly dominant right vertebral artery with no critical stenoses Intracranial vertebral arteries basilar artery and posterior cerebral branches fill Juxtasellar supraclinoid portions internal carotid arteries fill There is mass effect upon the M1 segment right middle cerebral artery secondary to the large frontal lobe neoplasm No large vessel occlusions are depicted however IMPRESSION: No significant neck arterial stenoses No cerebral large vessel arterial occlusions or thrombus Consider brain MRI MRA follow-up pre and postcontrast to best assess for acute ischemic change and also confirm neoplastic lesion in the right frontal temporal region Dictated By: Luis Templeton MD Medication Administration(s) Medication Administration History Discontinued Medications Dexamethasone Sodium Phosphate (Dexamethasone Sod Phos Inj 10 Mg/Ml Vial) 8 mg IVP X1 ONE Stop: 11/14/24 18:33 Last Admin: 11/14/24 18:44 Dose: 8 mg Documented By: OSEI Piperacillin/Tazobactam/Dextrose (Zosyn) 3.375 gm in 50 mls @ 100 mls/hr IV X1 ONE Stop: 11/14/24 15:38 Last Infusion: 11/14/24 16:52 Dose: Infused Documented By: Admin: 11/14/24 15:42 Dose: 100 mls/hr Documented By: OSEI Vancomycin/Sodium Chloride (Vancomycin/Ns 1 Gm Ivpb) 200 mls @ 120 mls/hr IV X1 ONE Stop: 11/14/24 16:54 Last Infusion: 11/14/24 18:55 Dose: Infused Documented By: Admin: 11/14/24 17:05 Dose: 120 mls/hr Documented By: DB Sodium Chloride (Ns) 1,000 mls @ 999 mls/hr IV .Q1H1M ONE Stop: 11/14/24 17:26 Last Infusion: 11/14/24 17:07 Dose: Infused Documented By: Admin: 11/14/24 16:28 Dose: 999 mls/hr Documented By: VG Sodium Chloride (Ns) 1,000 mls @ 999 mls/hr IV .Q1H1M ONE Stop: 11/14/24 19:30 Last Infusion: 11/14/24 19:57 Dose: Infused Documented By: Admin: 11/14/24 18:37 Dose: 999 mls/hr Documented By: VG Methylprednisolone Sodium Succinate (Methylprednisolone Sod Succ 62.5 Mg/Ml 2ml Vial) 125 mg IVP X1 ONE Stop: 11/14/24 14:17 Last Admin: 11/14/24 14:44 Dose: 125 mg Documented By: SHERRIE Diagnosis Differential diagnosis: Brain tumor, GLIOBLASTOMA OF THE BRAIN, sepsis Dispositon Disposition: Admit
[2024-11-14 13:19] LABS: Base Excess 3 (-3-3); HCO3 26 mEq/L (20-26); Inspired Oxygen, FIO2 100 %; O2 Saturation 94 % (91-98); PCO2 35 mmHg (32.0-48.0); PO2 63 mmHg (83-108); pH, Arterial 7.48 (7.35-7.45)
[2024-11-14 13:20] LABS: Allen Test Performed/OK; Puncture Site Right Radial
--- NOTE | 2024-11-14 13:28 | PC.NURSE ---
pt taken to CT.
[2024-11-14 13:34] LABS: INR 1.1 (0.9-1.3); Prothrombin Time 11.5 Seconds (9.0-12.2)
[2024-11-14 13:41] LABS: Alanine Aminotransferase 42 U/L (10-49); Albumin, Serum 4.4 gm/dL (3.5-5.0); Albumin/Globulin Ratio 1.7 (1.2-2.2); Alkaline Phosphatase 110 U/L (46-116); Anion Gap 12 (7-16); BUN/Creatinine Ratio 22 Ratio (12-20); Bilirubin,Total 0.4 mg/dL (0.3-1.2); Blood Urea Nitrogen 13 mg/dL (9-23); Calcium 9.3 mg/dL (8.3-10.6); Calcium (Corrected) 9.3 mg/dL (8.5-10.1); Carbon Dioxide 26.7 mMol/L (20.0-31.0); Chloride 100 mMol/L (98-107); Creatinine (Component) 0.6 mg/dL (0.6-1.3); Estimated Creatinine Clearance 121.1 mL/min (>60); Globulin 2.6 gm/dL (2.3-3.5); Glucose 123 mg/dL (74-106); Lipase 51 U/L (12-53); Magnesium 2.2 mg/dL (1.6-2.6); Osmolality,Calculated 278 (275-295); Potassium 4.2 mMol/L (3.4-5.1); Sodium 139 mMol/L (136-145); Troponin I < 0.002 ng/mL (0.0-0.045); eGFR > 60 See Note
[2024-11-14 13:44] LABS: B-Type Natriuretic Peptide 58 pg/mL (0-100)
--- NOTE | 2024-11-14 14:15 | XR_ITS ---
Examination: CTA carotids with intravenous contrast CTA brain, head with intravenous contrast. 2-D sagittal, coronal reconstructions. 3-D reconstructions. Exam date and time: November 14, 2024 1549 hours INDICATIONS: Stroke alert, patient nonverbal change in mentation CTDI: vol (mGy) 11.4 DLP: (mGycm) 670 Technique: Multiple CTA axial brain, head carotid images post intravenous contrast injection 70 cc, Isovue-370. 2-D sagittal, coronal reconstructions. 3-D reconstructions, 3-D post processing including vascular maximum intensity projection images. Low dose protocols were performed. One or more of the following dose reduction techniques were used; automated exposure control, adjustment of the mA and/or KV according to patient size, use of iterative reconstruction technique. Findings: No significant common carotid carotid bifurcation or internal carotid artery stenoses Mildly dominant right vertebral artery with no critical stenoses Intracranial vertebral arteries basilar artery and posterior cerebral branches fill Juxtasellar supraclinoid portions internal carotid arteries fill There is mass effect upon the M1 segment right middle cerebral artery secondary to the large frontal lobe neoplasm No large vessel occlusions are depicted however IMPRESSION: No significant neck arterial stenoses No cerebral large vessel arterial occlusions or thrombus Consider brain MRI MRA follow-up pre and postcontrast to best assess for acute ischemic change and also confirm neoplastic lesion in the right frontal temporal region
[2024-11-14 14:16] LABS: Basophils % (Auto) 0 % (0-2.5); Eosinophils # (Auto) 0.1 Thou/mm3 (0.0-0.5); Eosinophils % (Auto) 1 % (0-10); Hemoglobin 13.6 g/dL (13.5-16.0); Immature Granulocytes % (Auto) 5 % (0-0); Immature Granulocytes Auto 0.41 Thou/mm3 (0.00-0.00); Lymphocytes % (Auto) 23 % (10-50); Mean Corpuscular Hemoglobin 29.6 pg (25.0-35.0); Mean Corpuscular Volume 87 fL (80-100); Monocytes # (Auto) 0.3 Thou/mm3 (0.0-0.8); Monocytes % (Auto) 4 % (0-12); Neutrophils # (Auto) 5.8 Thou/mm3 (1.8-7.7); Neutrophils % (Auto) 67 % (37-80); Nucleated Red Blood Cell % 0 /100 WBC (0); Platelet Count 285 Thou/mm3 (140-440); RDW Standard Deviation 50.6 fL (35.1-43.9); Red Blood Count 4.59 Miln/mm3 (4.50-5.90); White Blood Count 8.7 Thou/mm3 (3.8-10.6)
[2024-11-14] MEDS: MethylPREDNISolone SOD SUCC 62.5 MG/ML 2ML VIAL 125 MG IVP (14:44)
[2024-11-14] MEDS: PIPER/TAZO 3.375 GM PREMIX 3.375 GM/50 ML BAG IV (15:42)
[2024-11-14] MEDS: SODIUM CHLORIDE 0.9% 1000 ML 1,000 ML 999 ML IV ×2 (16:28→18:37)
[2024-11-14] MEDS: VANCOMYCIN/NS 1 GM IVPB 200 ML IV (17:05)
--- NOTE | 2024-11-14 17:26 | EKG_ITS ---
[facility] Test Date: 2024-11-14 Pat Name: VALENTINO MIDDLETON Department: Room: - Gender: Male [employer] Technical Assistant: : 1965 Requested By: Leonid Hernadez Order Number: [id number] Reading MD: Leonid Hernadez Measurements Intervals [place] Rate: 81 P: 57 MO: 147 QRS: 32 QRSD: 91 T: 67 QT: 377 QTc: 440 Interpretive Statements SINUS RHYTHM MODERATE T-WAVE ABNORMALITY, CONSIDER ANTEROLATERAL ISCHEMIA [-0.1+ mV T-WAVE IN V3-V6] Compared to ECG 11/14/2024 13:11:57 T-wave abnormality now present Possible ischemia now present /store/S0/[id number]/ecg/[id number].pdf
--- NOTE | 2024-11-14 18:07 | PC.CM ---
Addendum entered by Maggi Caraballo RN 11/14/24 18:57: Dr. Briseida Paula called me and stated she missed the call from [facility]. I called [facility] transfer center and I let a message letting them know to call ED to speak to Dr. Paula. Addendum entered by Maggi Caraballo RN 11/14/24 18:50: 1840 [facility] called me back and I transferred call to Dr. Hernadez. Original Note: I received a call from Dr. Hernadez stating patient is in ED and was sent from our sub-acute. He states patient had been at [facility], and was then sent to our Sub-acute. He states he wants to know if we could call [facility] to see if they would be interested in taking patient back to their facility. He states family is very insist that patient goes back to [facility]. Dr. Hernadez states he does NOT feel patient is appropriate for a higher level transfer to [facility]. He states he want to speak to the transfer center. I provided him with the number to [facility] transfer [place] and I let him know I will fax over paperwork so they can review.
--- NOTE | 2024-11-14 18:35 | EDNOTE_ITS ---
Emergency Room Addendum Addendum Narrative: 1800: Care assumed from Dr. Hernadez, the previous shift emergency physician. Past medical, surgical, social and family history reviewed. Vitals and home medications reviewed. Results and treatment plan discussed. I will assume the care of the patient at this time and will follow the patient. Please refer to the emergency department record for history and examination from initial visit. 1857: Spoke extensively with the patient's multiple family members at bedside regarding the patient's condition. They will discuss putting the patient on comfort care. 2004: Attempted to call Dr. Bhagat without any success. 2009: Discussed case with Dr. Bhagat from [facility] regarding transferring the patient back. Discussed patients ED course, exam findings, labs, and radiology results. Agrees to accept the patient back at subacute as long as the patient's family is aware of the patient's clinical condition and his need for DNR with comfort measures. 2100: Discussed patient's CODE status at great length with the patient's family members at bedside. After having an extensive discussion, the patient's does not want to sign a DNR. Nonetheless, patient can still be discharged back to subacute. 2127: I updated Dr. Bhagat and he states he will still accept the patient back to subacute. Dr. Bhagat states he will deal with the patient's CODE status in the morning.
[2024-11-14] MEDS: DEXAMETHASONE SOD PHOS INJ 10 MG/ML VIAL 8 MG IVP (18:44)
== END 2024-11-14 21:38 ==
PROVIDERS: Emergency Provider Emergency Medicine
DX: C71.9 Malignant neoplasm of brain, unspecified (principal); J18.9 Pneumonia, unspecified organism; R09.02 Hypoxemia; Z51.5 Encounter for palliative care; Z93.0 Tracheostomy status
CPT/HCPCS: 36415; 36600; 70450; 70496; 70498; 71045; 80053; 82803; 83690; 83735; 83880; 84484; 85025; 85610; 87040; 93005; 96361; 96365; 96366; 96367; 96375; 99285; A4649; J1100; J2543; J2919; J3370; J7030; Q9967